=== PATIENT | male | born 1980 | race Two or more races ===

== ENCOUNTER 2017-05-15 15:21 | Emergency (ER) | payer SELFPAY ==
--- NOTE | 2017-05-15 15:39 | ER Document Report ---
ED Medical Screen (RME) - General Chief Complaint: Flank Pain Stated Complaint: ABDOMINAL PAIN Time Seen by Provider: 05/15/17 15:38 Mode of Arrival: Ambulatory Information source: Patient, Relative Notes: 36-year-old male presents with complaints of constipation abdominal pain. Patient denies any fevers or chills I have greeted and performed a rapid initial assessment of this patient. A comprehensive ED assessment and evaluation of the patient, analysis of test results and completion of the medical decision making process will be conducted by additional ED providers. PHYSICAL EXAMINATION: GENERAL: Well-appearing, well-nourished and in no acute distress. HEAD: Atraumatic, normocephalic. EYES: Pupils equal round extraocular movements intact, conjunctiva are normal. ENT: Nares patent NECK: Normal range of motion LUNGS: No respiratory distress Musculoskeletal: Normal range of motion NEUROLOGICAL: Normal speech, normal gait. PSYCH: Normal mood, normal affect. SKIN: Warm, Dry, normal turgor, no rashes or lesions noted. TRAVEL OUTSIDE OF THE [place] IN LAST 30 DAYS: No - Related Data Allergies/Adverse Reactions: No Known Allergies Allergy (Unverified 05/15/17 15:35) Home Medications: Current Home Medications No Home Medications 05/15/17 [History] Past Medical History Renal/ Medical History: Denies: Hx Peritoneal Dialysis Physical Exam - Vital signs Vitals: Temp Pulse Resp BP Pulse Ox 97.9 F 75 14 140/87 H 99 05/15/17 15:27 05/15/17 15:27 05/15/17 15:27 05/15/17 15:27 05/15/17 15:27 Course - Vital Signs Vital signs: Temp Pulse Resp BP Pulse Ox 97.9 F 75 14 140/87 H 99 05/15/17 15:27 05/15/17 15:27 05/15/17 15:27 05/15/17 15:27 05/15/17 15:27
[2017-05-15 16:18] LABS: ABSOLUTE EOSINOPHILS # (AUTO) 0.5 10^3/uL (0.0-0.6); ABSOLUTE LYMPHOCYTES (AUTO) 1.5 10^3/uL (0.5-4.7); ABSOLUTE MONOCYTES (AUTO) 0.6 10^3/uL (0.1-1.4); ABSOLUTE NEUT (AUTO) 3.8 10^3/uL (1.7-8.2); BASOPHILS % (AUTO) 0.2 % (0-2); EOSINOPHILS % (AUTO) 7.1 % (0-6); HEMATOCRIT 44.5 % (37.9-51.0); HEMOGLOBIN 15.6 g/dL (13.5-17.0); HGB HCT DIFFERENCE 2.3; LYMPHOCYTES % (AUTO) 23.4 % (13-45); MEAN CORPUSCULAR HEMOGLOBIN 33.1 pg (27.0-33.4); MEAN CORPUSCULAR HGB CONC 35.2 g/dL (32.0-36.0); MEAN CORPUSCULAR VOLUME 94 fl (80-97); RED BLOOD COUNT 4.72 10^6/uL (4.35-5.55); RED CELL DISTRIBUTION WIDTH 12.4 % (11.5-14.0); SEGMENTED NEUTROPHILS % (AUTO) 60.3 % (42-78); WHITE BLOOD COUNT 6.3 10^3/uL (4.0-10.5)
--- NOTE | 2017-05-15 16:30 | RADIOLOGY REPORT (SQ) ---
EXAM DESCRIPTION: ACUTE ABDOMEN SERIES COMPLETED DATE/TIME: 05/15/2017 4:21 pm REASON FOR STUDY: Constipation COMPARISON: None. NUMBER OF VIEWS: Three views. TECHNIQUE: Frontal chest, supine abdomen and upright abdomen radiographic images acquired. LIMITATIONS: None. FINDINGS: CHEST: Lungs clear of infiltrates. FREE AIR: None. No abnormal gas collections. BOWEL GAS PATTERN: There is an absence of bowel gas. There does not appear to be a large amount of s tool. CALCIFICATIONS: No suspicious calcifications. HARDWARE: None in the abdomen. SOFT TISSUES: No gross mass or suggestion of organomegaly. BONES: No acute fracture. No worrisome bone lesions. OTHER: No other significant finding. IMPRESSION: Unremarkable abdomen. TECHNICAL DOCUMENTATION: JOB ID: [id number] [employer]- All Rights Reserved
[2017-05-15 16:37] LABS: ALANINE AMINOTRANSFERASE 83 U/L (21-72); ALBUMIN 4.6 g/dL (3.5-5.0); ALKALINE PHOSPHATASE 88 U/L (38-126); ANION GAP 11 (5-19); ASPARTATE AMINO TRANSFERASE 41 U/L (17-59); BILIRUBIN,DIRECT 0.3 mg/dL (0.0-0.4); BILIRUBIN,TOTAL 0.9 mg/dL (0.2-1.3); BLOOD UREA NITROGEN 8 mg/dL (7-20); CALCIUM 9.7 mg/dL (8.4-10.2); CARBON DIOXIDE 30 mmol/L (22-30); CHLORIDE 100 mmol/L (98-107); CREATININE RESULT 0.75 mg/dL (0.52-1.25); GLUCOSE 110 mg/dL (75-110); LIPASE 89.8 U/L (23-300); POTASSIUM 4.1 mmol/L (3.6-5.0); SODIUM 141.3 mmol/L (137-145); TOTAL PROTEIN 8.1 g/dL (6.3-8.2)
--- NOTE | 2017-05-15 16:45 | ER Document Report ---
ED GI/ - General Mode of Arrival: Ambulatory Information source: Patient TRAVEL OUTSIDE OF THE [place] IN LAST 30 DAYS: No - HPI Patient complains to provider of: Abdominal pain Onset: Last week Timing/Duration: Persistent Quality of pain: Achy, Cramping Associated symptoms: Other - see narrative <SHRADDHA ESQUEDA - Last Filed: 05/15/17 18:22> <BYRON WONG - Last Filed: 05/15/17 23:07> - General Chief Complaint: Flank Pain Stated Complaint: ABDOMINAL PAIN Time Seen by Provider: 05/15/17 15:38 Notes: Patient is a 36 year old Citizen Of [place] speaking male is being translated by [employer] that presents to the emergency department today with complaints of abdominal pain. Patient states that he has not had a solid bowel movement in the last 7 or 8 days. Patient states he intermittently has very "watery" stool "every once in a while". Patient states he works outside daily but this is nothing new for him. Patient states he has tried OTC laxatives and teas with minimal relief. Patient states he has never had any abdominal surgeries. Patient denies urinary symptoms or vomiting. (SHRADDHA ESQUEDA) - Related Data Allergies/Adverse Reactions: No Known Allergies Allergy (Unverified 05/15/17 15:35) Home Medications: Current Home Medications No Home Medications 05/15/17 [History] Past Medical History - General Information source: Patient, Relative - Social History Smoking Status: Never Smoker Cigarette use (# per day): No Chew tobacco use (# tins/day): No Frequency of alcohol use: Social Drug Abuse: None Lives with: Family Family History: Reviewed & Not Pertinent - Medical History Medical History: Negative Surgical Hx: Negative <SHRADDHA ESQUEDA - Last Filed: 05/15/17 18:22> Review of Systems - Review of Systems Constitutional: No symptoms reported EENT: No symptoms reported Cardiovascular: No symptoms reported Respiratory: No symptoms reported Gastrointestinal: See HPI, Abdominal pain, Diarrhea, Constipation Genitourinary: No symptoms reported Male Genitourinary: No symptoms reported Musculoskeletal: No symptoms reported Skin: No symptoms reported Hematologic/Lymphatic: No symptoms reported Neurological/Psychological: No symptoms reported -: Yes All other systems reviewed and negative <SHRADDHA ESQUEDA - Last Filed: 05/15/17 18:22> Physical Exam <SHRADDHA ESQUEDA - Last Filed: 05/15/17 18:22> <BYRON WONG - Last Filed: 05/15/17 23:07> - Vital signs Vitals: Temp Pulse Resp BP Pulse Ox 97.9 F 75 14 140/87 H 99 05/15/17 15:27 05/15/17 15:27 05/15/17 15:27 05/15/17 15:27 05/15/17 15:27 - Notes Notes: Physical Exam: General: Alert, appears well. HEENT: Normocephalic. Atraumatic. PERRL. Extraocular movements intact. Oropharynx clear. Neck: Supple. Non-tender. Respiratory: No respiratory distress. Clear and equal breath sounds bilaterally. Cardiovascular: Regular rate and rhythm. Abdominal: Mild left sided abdominal tenderness with palpation. No guarding, rebound, or rigidity. No distension. Normal Bowel Sounds. Back: Non-tender. No deformity or step off. Extremities: Moves all four extremities. Upper extremities: Normal inspection. Normal ROM. Lower extremities: Normal inspection. No edema. Normal ROM. Neurological: Normal cognition. AAOx4. Normal speech. Psychological: Normal affect. Normal Mood. Skin: Warm. Dry. Normal color. (SHRADDHA ESQUEDA) Course - Laboratory Result Diagrams: 05/15/17 16:00 05/15/17 16:00 <SHRADDHA ESQUEDA - Last Filed: 05/15/17 18:22> - Laboratory Result Diagrams: 05/15/17 16:00 05/15/17 16:00 <JUDITHBYRON - Last Filed: 05/15/17 23:07> - Re-evaluation Re-evalutation: 05/15/17 19:45 Patient is Citizen Of [place]-speaking and language line is used for translation. He states that for the past 7 or 8 days he has been unable to move his bowels. And has been "constipated. He says they are hard and watery. He denies changing his diet initially or p.o. intake but come to find out once it started about 6 days ago he stopped eating and just kept drinking. He has taken over- the-counter laxatives and upset that it did not create any bowel movement. He denies any vomiting or diarrhea says he has a little bit of discomfort on the left side of his abdomen but denies any history of trauma injury or medical conditions on examination he is well-appearing nontoxic he is afebrile and not tachycardic is mildly tender in the left side with good bowel sounds no guarding rebound rigidity acute labs are negative including urinalysis and acute abdominal series shows no constipation. Went ahead and did a CT scan with IV contrast that is also negative for acute pathology. He denies a history of Crohn's disease ulcerative colitis bowel issues or rectal bleeding. At this point I am going to discharge him follow-up with a primary care physician I do not on serial examinations think he has an acute surgical abdomen and discussed via the language line reasons for ED return sooner 05/15/17 19:48 (BYRON WONG) - Vital Signs Vital signs: Temp Pulse Resp BP Pulse Ox 98.4 F 60 16 120/75 97 05/15/17 19:18 05/15/17 19:18 05/15/17 19:18 05/15/17 19:18 05/15/17 19:18 - Laboratory Laboratory results interpreted by me: 05/15/17 05/15/17 16:00 16:00 Eosinophils % 7.1 H ALT 83 H Discharge <SHRADDHA ESQUEDA - Last Filed: 05/15/17 18:22> <BYRON WONG - Last Filed: 05/15/17 23:07> - Discharge Clinical Impression: Abdominal pain Qualifiers: Abdominal location: unspecified location Qualified Code(s): R10.9 - Unspecified abdominal pain Condition: Stable Disposition: HOME, SELF-CARE Instructions: Abdominal Pain ([facility]) Additional Instructions: Abdominal Pain There are many causes of abdominal pain. Pain can mean a serious problem requiring surgery (such as appendicitis). It can also be an innocent problem that goes away on its own (such as a viral infection). Often, time must pass to determine the cause of pain. The physician does not feel that hospitalization is necessary, at present. Things may change within the next 24 hours. Call the doctor or come back for re- examination if any problems occur, such as: (1) Pain that becomes more severe, steady, or becomes concentrated in one specific area. Also, pain that is more severe with movement or coughing. (2) Vomiting that persists or becomes more frequent. (3) Blood in the vomitus, urine, or bowel movements. Blood in the stool may have a tarry or black appearance. (4) Shaking chills or fever greater than 100 degrees F. (5) The abdomen becomes more distended or swollen. (6) Bowel movements cease. (7) Failure to improve as expected. Referrals: JOCELINE MITCHELL MD [ACTIVE STAFF] - (Call for a follow-up appointment in 3-4 days return for increasing worsening or new symptoms) [facility] [Provider Group] (Call for an appointment to be seen in follow-up in 1-2 days return for increasing worsening or new symptoms) Print Language: Citizen Of [place] Scribe Attestation: 05/15/17 19:47 I personally performed the services described in the documentation reviewed the documentation recorded by my scribe in my presence and it accurately and completely records my words and actions (BYRON WONG) Scribe Documentation - Scribe Written by Iglesia:: Iglesia Loco, 05/15/2017 1818 acting as scribe for :: Judith <SHRADDHA ESQUEDA - Last Filed: 05/15/17 18:22>
[2017-05-15] MEDS ORDERED: ONDANSETRON HCL INJ/PF 4 MG/2 ML SDV IV ONE (18:30)
[2017-05-15] MEDS ORDERED: MORPHINE SULFATE 10 MG/ML INJ IV ONE (18:30)
--- NOTE | 2017-05-15 19:27 | RADIOLOGY REPORT (SQ) ---
EXAM DESCRIPTION: CT ABD/PELVIS WITH IV ONLY COMPLETED DATE/TIME: 05/15/2017 6:58 pm REASON FOR STUDY: abdominal pain COMPARISON: None. TECHNIQUE: CT scan of the abdomen and pelvis performed using helical scanning technique with dynamic intravenous contrast injection. No oral contrast. Images reviewed with lung, soft tissue, and bone windows. Reconstructed coronal and sagittal MPR images reviewed. Delayed images for evaluation of the urinary system also acquired. All images stored on PACS. All CT scanners at this facility use dose modulation, iterative reconstruction, and/or weight based d osing when appropriate to reduce radiation dose to as low as reasonably achievable (ALARA). [facility]: Dose Right [facility]: CareDose [facility]: Dose Right [facility]: Teradose 4D [facility]: [employer] CONTRAST TYPE AND DOSE: contrast/concentration: Isovue 370.00 mg/ml; Total Contrast Delivered: 100.0 ml; Total Saline Delivered: 70.0 ml RENAL FUNCTION: Creatinine 0.75 RADIATION DOSE: Up-to-date CT equipment and radiation dose reduction techniques were employed. CTDIv ol: 15.7 - 19.6 mGy. DLP: 2172 mGy-cm.. LIMITATIONS: None. FINDINGS: LOWER CHEST: No significant findings. No nodules or infiltrates. LIVER: Normal size. No masses. No dilated ducts. There is fatty infiltration of the liver. SPLEEN: Normal size. No focal lesions. PANCREAS: No masses. No significant calcifications. No adjacent inflammation or peripancreatic fluid collections. Pancreatic duct not dilated. GALLBLADDER: No identified stones by CT criteria. No inflammatory changes to suggest cholecystitis. ADRENAL GLANDS: No significant masses or asymmetry. RIGHT KIDNEY AND URETER: No solid masses. No significant calcifications. No hydronephrosis or hyd roureter. LEFT KIDNEY AND URETER: No solid masses. No significant calcifications. No hydronephrosis or hydr oureter. AORTA AND VESSELS: No aneurysm. No dissection. Renal arteries, SMA, celiac without stenosis. RETROPERITONEUM: No retroperitoneal adenopathy, hemorrhage or masses. BOWEL AND PERITONEAL CAVITY: No masses or inflammatory changes. No free fluid or peritoneal masses. APPENDIX: Normal. PELVIS: No mass. No free fluid. Normal bladder. ABDOMINAL WALL: No masses. No hernias. BONES: No significant or acute findings. OTHER: No other significant finding. IMPRESSION: NO SIGNIFICANT OR ACUTE FINDING IN THE ABDOMEN OR PELVIS ON CT SCAN WITH IV CONTRAST. TECHNICAL DOCUMENTATION: JOB ID: [id number] Quality ID # [id number]: Final reports with documentation of one or more dose reduction techniques (e.g., Au tomated exposure control, adjustment of the mA and/or kV according to patient size, use of iterative reconstruction technique) 2010 [employer]- All Rights Reserved
[2017-05-15 19:51] VITALS: BP 120/75
== END 2017-05-15 19:50 | disposition home or self-care (01) ==
LOC: ER 15:21
DX: R10.9 Unspecified abdominal pain (principal)
CPT/HCPCS: 99284; 96374; 96375; 36415; 83690; 85025; 80053; 74022; 74177; J2270; J2405

== ENCOUNTER 2018-03-24 15:52 | Emergency (ER) | payer SELFPAY ==
[2018-03-24] MEDS ORDERED: NORMAL SALINE 1000 ML 1,000 ML IV ONE (17:06)
[2018-03-24] MEDS ORDERED: HYDROMORPHONE HCL INJ/PF 2 MG/ML AMPULE IV ONE (17:06)
--- NOTE | 2018-03-24 17:07 | ER Document Report ---
ED Skin Rash/Insect Bite/Abscs - General Chief Complaint: Abscess Stated Complaint: NECK PAIN, SWELLING Time Seen by Provider: 03/24/18 16:52 Mode of Arrival: Ambulatory Information source: Patient, Friend Notes: Patient is a 37-year-old male who presents to the ER today for swelling to the right side of his neck 1 month with redness and pain. Patient complains of chills also but has not taken his temperature to see if he had a fever or not. Patient states that he did see a dentist for pain that he thinks originated in the mouth on one of his bottom teeth on that side and the dentist thought that it was his wisdom teeth. He has had his wisdom teeth removed in the course of this over the past month, stating that at that time the swelling and redness to his neck only got worse. Patient was not placed on any antibiotics by this dentist. He denies any history of MRSA. He denies any drainage from the area. Friend is here translating for me has patient is [place]-speaking only. TRAVEL OUTSIDE OF THE [place] IN LAST 30 DAYS: No - Related Data Allergies/Adverse Reactions: No Known Allergies Allergy (Unverified 05/15/17 15:35) Past Medical History - General Information source: Patient - Social History Smoking Status: Unknown if Ever Smoked Family History: Reviewed & Not Pertinent Renal/ Medical History: Denies: Hx Peritoneal Dialysis Review of Systems - Review of Systems Constitutional: See HPI EENT: No symptoms reported Cardiovascular: No symptoms reported Respiratory: No symptoms reported Gastrointestinal: No symptoms reported Genitourinary: No symptoms reported Male Genitourinary: No symptoms reported Musculoskeletal: No symptoms reported Skin: See HPI Hematologic/Lymphatic: No symptoms reported Neurological/Psychological: No symptoms reported Physical Exam - Vital signs Vitals: Temp Pulse Resp BP Pulse Ox 99.1 F 71 16 115/64 97 03/24/18 16:11 03/24/18 16:11 03/24/18 16:11 03/24/18 16:11 03/24/18 16:11 - Notes Notes: PHYSICAL EXAMINATION: GENERAL: Well-appearing and in no acute distress. HEAD: Atraumatic, normocephalic. EYES: Pupils equal round and reactive to light, extraocular movements intact, sclera anicteric, conjunctiva are normal. ENT: ear canals without erythema or foreign body, TMs pearly rios with good bony landmarks, nares patent, oropharynx clear without exudates. Moist mucous membranes. Airway patent, no obvious dental infection NECK: Normal range of motion, supple without lymphadenopathy LUNGS: CTAB and equal. No wheezes rales or rhonchi. HEART: Regular rate and rhythm without murmurs ABDOMEN: Soft, no tenderness. No guarding, no rebound BACK: no vertebral tenderness, normal ROM GI/: no CVA tenderness EXTREMITIES: Normal range of motion, no pitting edema. No cyanosis. NEUROLOGICAL: Cranial nerves grossly intact. Normal sensory/motor exams. PSYCH: Normal mood, normal affect. SKIN: Warm, Dry, normal turgor, large 5 x 6 cm indurated abscess to the right neck below the mandible, erythematous and tender, warm Course - Re-evaluation Re-evalutation: 03/24/18 19:31 Patient has a mildly elevated white blood cell count 12.1, CAT scan reveals a 5 x 2 x 5.7 x 5.9 cm multilocular fluid collection with well-defined hyperenhancing wall within the left lateral cervical tissues anterior to the sternocleidomastoid and posterior to the left submandibular salivary gland extending caudally to the level of the thyroid cartilage. We do not have ENT distribution clerk today. I consulted with my attending, Dr. Perdue who advises contacting ENT for transfer at this time to drain the abscess. There is no airway compromise today. Dr. Tello Hutson, ear nose and throat at [facility] was consulted, pictures were sent to him of the CAT scan as well as of patient's neck with patient's permission today, he thinks that this is a soft tissue abscess started because of the wisdom tooth removal, called Actinomyces. He states that he wants him to see him in the office first thing Monday morning at 8 AM and he will set up a plan to take care of this, drainage in the OR at that time. He understands the patient has no insurance and says that they will set up something called nate care. Patient will go home on a high dose penicillin per Dr. Hutson's instructions and was given steroids. Patient agrees with this plan. 03/24/18 21:20 03/24/18 21:20 - Vital Signs Vital signs: Temp Pulse Resp BP Pulse Ox 98.6 F 72 18 126/74 H 100 03/24/18 20:00 03/24/18 20:00 03/24/18 20:00 03/24/18 20:00 03/24/18 20:00 - Laboratory Result Diagrams: 03/24/18 17:15 03/24/18 17:15 Laboratory results interpreted by me: 03/24/18 17:15 WBC 12.1 H Absolute Neutrophils 9.3 H Discharge - Discharge Clinical Impression: Abscess, neck Condition: Stable Disposition: HOME, SELF-CARE Additional Instructions: Return immediately for any new or worsening symptoms. Follow up with primary care provider, call tomorrow to make followup appointment. Please see Dr. Hutson first thing Monday morning at 8 AM and [place]. He is expecting you. [facility] [place] [address] Contact Information Prescriptions: Oxycodone HCl/Acetaminophen [Percocet 5-325 mg Tablet] 1 - 2 tab PO Q4H PRN #15 tablet PRN Reason: Penicillin V Potassium [Penicillin Vk 500 mg Tablet] 500 mg PO TID #30 tablet Prednisone 60 mg PO DAILY #15 tablet Forms: Return to Work
[2018-03-24 17:41] LABS: ABSOLUTE EOSINOPHILS # (AUTO) 0.2 10^3/uL (0.0-0.6); ABSOLUTE LYMPHOCYTES (AUTO) 1.7 10^3/uL (0.5-4.7); ABSOLUTE MONOCYTES (AUTO) 0.8 10^3/uL (0.1-1.4); ABSOLUTE NEUT (AUTO) 9.3 10^3/uL (1.7-8.2); BASOPHILS % (AUTO) 0.2 % (0-2); EOSINOPHILS % (AUTO) 1.6 % (0-6); HEMATOCRIT 42.5 % (37.9-51.0); HEMOGLOBIN 14.7 g/dL (13.5-17.0); LYMPHOCYTES % (AUTO) 13.8 % (13-45); MEAN CORPUSCULAR HEMOGLOBIN 32.5 pg (27.0-33.4); MEAN CORPUSCULAR HGB CONC 34.5 g/dL (32.0-36.0); MEAN CORPUSCULAR VOLUME 94 fl (80-97); PLATELET COUNT 386 10^3/uL (150-450); RED BLOOD COUNT 4.52 10^6/uL (4.35-5.55); RED CELL DISTRIBUTION WIDTH 12.9 % (11.5-14.0); SEGMENTED NEUTROPHILS % (AUTO) 77.4 % (42-78); TOTAL CELLS COUNTED % (AUTO) 100 %; WHITE BLOOD COUNT 12.1 10^3/uL (4.0-10.5)
[2018-03-24 17:57] LABS: ALANINE AMINOTRANSFERASE 25 U/L (21-72); ALBUMIN 4.1 g/dL (3.5-5.0); ALKALINE PHOSPHATASE 91 U/L (38-126); ANION GAP 11 (5-19); ASPARTATE AMINO TRANSFERASE 22 U/L (17-59); BILIRUBIN,DIRECT 0.3 mg/dL (0.0-0.4); BILIRUBIN,TOTAL 0.3 mg/dL (0.2-1.3); BLOOD UREA NITROGEN 9 mg/dL (7-20); CALCIUM 9.5 mg/dL (8.4-10.2); CARBON DIOXIDE 28 mmol/L (22-30); CHLORIDE 103 mmol/L (98-107); GLUCOSE 90 mg/dL (75-110); POTASSIUM 4.1 mmol/L (3.6-5.0); SODIUM 142.3 mmol/L (137-145); TOTAL PROTEIN 7.6 g/dL (6.3-8.2)
--- NOTE | 2018-03-24 18:14 | RADIOLOGY REPORT (SQ) ---
EXAM DESCRIPTION: CT SOFT TISSUE NECK WITH COMPLETED DATE/TIME: 03/24/2018 5:47 pm REASON FOR STUDY: large abscess right neck, tender under tongue COMPARISON: None. TECHNIQUE: Post IV contrasted scanning from skull base through lung apices with review of bone, soft tissue and lung windows. Reconstructed coronal and sagittal MPR images reviewed. All images stored on PACS. All CT scanners at this facility use dose modulation, iterative reconstruction, and/or weight based d osing when appropriate to reduce radiation dose to as low as reasonably achievable (ALARA). [facility]: Dose Right [facility]: CareDose [facility]: Dose Right [facility]: Teradose 4D [facility]: [employer] CONTRAST TYPE AND DOSE: contrast/concentration: Isovue 370.00 mg/ml; Total Contrast Delivered: 75.0 ml; Total Saline Delivered: 55.0 ml RENAL FUNCTION: None required. The patient is less than 50 years old. RADIATION DOSE: CT Rad equipment meets quality standard of care and radiation dose reduction techniq ues were employed. CTDIvol: 17.4 mGy. DLP: 519 mGy-cm. . LIMITATIONS: None. FINDINGS: SKULL BASE: Intact. MAJOR SALIVARY GLANDS: No solid or cystic masses. No inflammatory changes. LYMPHADENOPATHY: Reactive lymph nodes are seen along the left anterior cervical chain. MUCOSAL MASSES OR ASYMMETRY: No mucosal masses or asymmetry. LARYNX/CORDS: No abnormal findings. VASCULAR STRUCTURES: The major vessels are patent. LUNG APICES: Clear. BONES: Intact. THYROID: Normal size. No masses. PARANASAL SINUSES: Clear. OTHER: A 5.2 x 5.7 x 5.9 cm multilocular fluid collection with well-defined hyperenhancing wall is se en within the left lateral cervical tissues, anterior to the sternocleidomastoid and posterior to the left submandibular salivary gland extending caudally to the level of the thyroid cartilage. IMPRESSION: 5.2 x 5.7 x 5.9 cm multilocular abscess within the superficial soft tissues of the neck. The airway and vascular structures remain patent. TECHNICAL DOCUMENTATION: JOB ID: [id number] Quality ID # [id number]: Final reports with documentation of one or more dose reduction techniques (e.g., Au tomated exposure control, adjustment of the mA and/or kV according to patient size, use of iterative reconstruction technique) 2010 [employer]- All Rights Reserved Reading location - IP/workstation name: [facility]
[2018-03-24] MEDS ORDERED: DEXAMETHASONE SOD PHOS INJ 10 MG/1 ML VIAL IV ONE (19:31)
[2018-03-24 20:01] VITALS: BP 126/74
== END 2018-03-24 20:01 | disposition home or self-care (01) ==
LOC: ER 15:52
DX: L02.11 Cutaneous abscess of neck (principal); R68.83 Chills (without fever); D72.829 Elevated white blood cell count, unspecified; Z98.890 Other specified postprocedural states
CPT/HCPCS: 99284; 96361; 96374; 96375; 36415; 87040; 85025; 80053; 70491; J1170; J7030; J1100